=== PATIENT | male | born 1970 | race Hispanic/Latino ===

== ENCOUNTER 2020-04-02 07:23 | Inpatient (IN) | payer OTHER ==
[~2020-04-02] VITALS: Ht 167.6 cm; Wt 102.5 kg
[2020-04-02 08:26] LABS: ABG BASE EXCESS -0.2 mmol/L (-2.0-3.0); ABG OXYGEN SATURATION 93.9 % (95.0-99.0); ABG PCO2 30 mmHg (35-48)
[2020-04-02 08:40] LABS: BASOPHILS % (AUTO) 0.1 % (0.0-5.0); HEMATOCRIT 34.7 % (42-54); LYMPHOCYTES % (AUTO) 9.6 % (21.0-51.0); MEAN CORPUSCULAR HEMOGLOBIN 18.4 pg (27.0-33.0); MEAN CORPUSCULAR HGB CONC 28.5 g/dL (32.0-36.0); MEAN CORPUSCULAR VOLUME 64.6 fL (79-99); MONOCYTES % (AUTO) 5.2 % (3.0-13.0); NEUTROPHILS % (AUTO) 84.2 % (40.0-77.0); NUCLEATED RED BLOOD CELLS 0.7 % (0.0-0.19); RED BLOOD CELL COUNT(AUTO) 5.37 MIL/uL (4.50-6.20); RED CELL DISTRIBUTION WIDTH 21.1 % (11.0-15.5); WHITE BLOOD COUNT (AUTO) 13.4 K/uL (4.8-10.8)
[2020-04-02 09:00] LABS: PLATELET COUNT (AUTO) 704 K/uL (130-400)
[2020-04-02 09:23] LABS: ALANINE AMINOTRANSFERASE 30 U/L (12-78); ASPARTATE AMINOTRANSFERASE 25 U/L (10-37); BILIRUBIN,TOTAL 0.6 mg/dL (0.2-1.0); CARBON DIOXIDE 23 mmol/L (21-32); CHLORIDE 102 mmol/L (101-111); CREATINE KINASE, TOTAL 59 U/L (21-232); CREATININE 1.1 mg/dL (0.5-1.5); GLOMERULAR FILTR. RATE CALC 75 mL/min (>60); GLUCOSE,RANDOM 224 mg/dL (70-105); MYOGLOBIN 58 ng/mL (10-92); POTASSIUM 4.3 mmol/L (3.5-5.1); SODIUM SERUM 137 mmol/L (136-145); TROPONIN I < 0.04 ng/mL (0.00-0.06); UREA NITROGEN, BLOOD 19 mg/dL (7-18)
[2020-04-02 09:40] LABS: PLATELET MORPHOLOGY COMMENT MARKED INCREASE
[2020-04-02 09:41] LABS: INR 1.13 (0.85-1.15); PARTIAL THROMBOPLASTIN TIME 28.1 SEC (26.3-35.5); PROTHROMBIN TIME 12.1 SEC (9.6-11.6)
[2020-04-02] MEDS ORDERED: ALBUTEROL INHALER 90MCG/INH IH ONE (09:44)
[2020-04-02] MEDS ORDERED: DEXAMETHASONE SOD PHOSPHATE 10MG/ML 1ML VIAL ONE (09:45)
[2020-04-02] MEDS ORDERED: AZITHROMYCIN 500MG+NS 250ML 250 ML IV ONE (09:45)
[2020-04-02] MEDS ORDERED: ACETAMINOPHEN EXTRA STRENGTH 500 MG TABLET ONE (09:46)
[2020-04-02] MEDS ORDERED: CEFTRIAXONE SODIUM 1 GM ONE ×2 (09:46→21:02)
[2020-04-02] MEDS ORDERED: ONDANSETRON HCL 4 MG/2 ML VIAL IV PRN (11:30)
[2020-04-02] MEDS ORDERED: DiphenhydrAMINE HCL 50 MG/ML VIAL IV PRN (11:30)
[2020-04-02] MEDS: CEFTRIAXONE SODIUM 1 GM IVP SCH ×2 (11:30→21:41)
[2020-04-02] MEDS ORDERED: NITROGLYCERIN 0.4 MG SL TAB SL PRN (11:30)
[2020-04-02] MEDS ORDERED: DIPHENHYDRAMINE HCL 25 MG CAPSULE PO PRN (11:30)
[2020-04-02] MEDS ORDERED: ACETAMINOPHEN 325 MG TAB PO PRN ×2 (11:30)
[2020-04-02] MEDS ORDERED: HYDRALAZINE HCL 20 MG/ML VIAL IV PRN (11:30)
[2020-04-02] MEDS: INSULIN LISPRO 100 UNIT/ML 3ML SQ SCH ×2 (11:30→17:00)
[2020-04-02] MEDS ORDERED: LACTULOSE 20 GM/30 ML UDCUP PO PRN (11:30)
[2020-04-02] MEDS ORDERED: ERGOCALCIFEROL (VITAMIN D2) 50,000 UNIT CAPSULE PO ONE (11:30)
[2020-04-02] MEDS ORDERED: DEXTROSE 50%-WATER 50 ML DISP.SYRIN IV PRN (12:00)
[2020-04-02] MEDS ORDERED: GLUCAGON 1MG KIT 1 MG ML IM PRN (12:00)
[2020-04-02] MEDS ORDERED: ERGOCALCIFEROL (VITAMIN D2) 50,000 UNIT CAPSULE PO SCH (12:00)
[2020-04-02] MEDS ORDERED: POTASSIUM CHLORIDE 20 MEQ ERTAB PO PRN (12:00)
[2020-04-02] MEDS ORDERED: POTASSIUM CHLORIDE 20MEQ/100ML 100 ML IV PRN ×2 (12:00)
[2020-04-02] MEDS ORDERED: POTASSIUM CHLORIDE 10% ELIXIR 20 MEQ/15 ML UDCUP PO PRN (12:00)
[2020-04-02 12:46] LABS: HEMOGLOBIN A1C 7.5 % (4.0-6.0)
[2020-04-02] MEDS: BENZONATATE 100 MG CAPSULE PO SCH ×2 (14:00→21:42)
[2020-04-02] MEDS: METHYLPREDNISOLONE SOD SUCC 40MG/ML 1ML IVP SCH ×2 (14:00→21:41)
[2020-04-02 16:10] LABS: APPEARANCE,URINE Clear (CLEAR); BILIRUBIN,URINE Negative (NEGATIVE); COLOR,URINE Yellow (YELLOW); GLUCOSE, URINE (UA) Negative (NEGATIVE); KETONES,URINE Negative (NEGATIVE); LEUKOCYTE ESTERASE ,URINE Negative (NEGATIVE); NITRATE,URINE Negative (NEGATIVE); OCCULT BLOOD,URINE Negative (NEGATIVE); PROTEIN,URINE POS 1+ mg/dL (NEGATIVE)
[2020-04-02 16:28] LABS: RBC,URINE 0-1 /HPF (0-1); WBC,URINE 0-1 /HPF (0-1)
[2020-04-02 16:29] LABS: BACTERIA,URINE Few /HPF (None Seen); HYALINE CASTS, URINE 0-1 /LPF (0-1 /LPF); SQUAMOUS EPITHELIAL CELL,UR Rare /HPF (0-2)
[2020-04-02] MEDS: INSULIN HUMULIN R 100 UNIT/ML 3ML SQ SCH ×2 (16:30→20:15)
[2020-04-02] MEDS ORDERED: ERGOCALCIFEROL (VITAMIN D2) 50,000 UNIT CAPSULE ONE (18:10)
[2020-04-02 20:00] VITALS: BP 121/90
[2020-04-02] MEDS: ACETYLCYSTEINE 600 MG CAPSULE PO SCH (21:00)
[2020-04-02] MEDS: FAMOTIDINE 20MG TAB 20 MG TAB PO SCH (21:00)
[2020-04-02] MEDS ORDERED: ENOXAPARIN SODIUM 1 MG/KG SQ SCH (21:00)
[2020-04-02] MEDS ORDERED: DOXYCYCLINE 100MG+NS 250ML 250 ML IV ONE (21:01)
[2020-04-02] MEDS ORDERED: METHYLPREDNISOLONE SOD SUCC 40MG/ML 1ML ONE (21:01)
[2020-04-02] MEDS ORDERED: BENZONATATE 100 MG CAPSULE PO ONE (21:02)
[2020-04-02] MEDS: ENOXAPARIN SODIUM 120 MG/0.8ML SQ SCH (21:40)
[2020-04-02] MEDS: INSULIN GLARGINE 100 UNITS/ML 10 ML VIAL SQ SCH (21:41)
[2020-04-02] MEDS ORDERED: DOXYCYCLINE HYCLATE 100 MG TABLET PO ONE (21:43)
[2020-04-02] MEDS: DOXYCYCLINE HYCLATE 100 MG TABLET PO SCH (21:43)
[2020-04-03] VITALS: BP 127/80
[2020-04-03 04:00] VITALS: BP 124/69
[2020-04-03 04:51] LABS: BASOPHILS % (AUTO) 0.1 % (0.0-5.0); HEMATOCRIT 33.3 % (42-54); LYMPHOCYTES % (AUTO) 16.8 % (21.0-51.0); MEAN CORPUSCULAR HEMOGLOBIN 18.3 pg (27.0-33.0); MEAN CORPUSCULAR HGB CONC 27.9 g/dL (32.0-36.0); MEAN CORPUSCULAR VOLUME 65.4 fL (79-99); MONOCYTES % (AUTO) 7.7 % (3.0-13.0); NEUTROPHILS % (AUTO) 74.6 % (40.0-77.0); NUCLEATED RED BLOOD CELLS 1.4 % (0.0-0.19); PLATELET COUNT (AUTO) 664 K/uL (130-400); RED BLOOD CELL COUNT(AUTO) 5.09 MIL/uL (4.50-6.20); RED CELL DISTRIBUTION WIDTH 20.9 % (11.0-15.5); WHITE BLOOD COUNT (AUTO) 13.2 K/uL (4.8-10.8)
[2020-04-03] MEDS: INSULIN LISPRO 100 UNIT/ML 3ML SQ SCH (05:12)
[2020-04-03] MEDS: INSULIN HUMULIN R 100 UNIT/ML 3ML SQ SCH ×2 (05:12→21:52)
[2020-04-03 05:16] LABS: ALANINE AMINOTRANSFERASE 28 U/L (12-78); ALBUMIN 2.6 g/dL (3.5-5.0); ASPARTATE AMINOTRANSFERASE 26 U/L (10-37); BILIRUBIN,TOTAL 0.5 mg/dL (0.2-1.0); CARBON DIOXIDE 22 mmol/L (21-32); CHLORIDE 103 mmol/L (101-111); GLOMERULAR FILTR. RATE CALC 84 mL/min (>60); GLUCOSE,RANDOM 157 mg/dL (70-105); LACTATE DEHYDROGENASE 322 U/L (81-234); POTASSIUM 4.4 mmol/L (3.5-5.1); SODIUM SERUM 138 mmol/L (136-145); TOTAL PROTEIN, SERUM 7.1 g/dL (6.0-8.3); UREA NITROGEN, BLOOD 24 mg/dL (7-18)
[2020-04-03] MEDS ORDERED: ENOXAPARIN SODIUM 100 MG/1 ML SQ ONE (08:23)
[2020-04-03] MEDS ORDERED: METHYLPREDNISOLONE SOD SUCC 40MG/ML 1ML ONE ×3 (08:23→22:43)
[2020-04-03] MEDS ORDERED: DOXYCYCLINE HYCLATE 100 MG TABLET PO ONE ×2 (08:24→22:43)
[2020-04-03] MEDS ORDERED: ASCORBIC ACID 500 MG TAB ONE (08:24)
[2020-04-03] MEDS ORDERED: ZINC SULFATE 220 CAPSULE ONE (08:24)
[2020-04-03] MEDS ORDERED: BENZONATATE 100 MG CAPSULE PO ONE ×4 (08:24→22:44)
[2020-04-03] MEDS: BENZONATATE 100 MG CAPSULE PO SCH ×2 (08:46→22:55)
[2020-04-03] MEDS: DOXYCYCLINE HYCLATE 100 MG TABLET PO SCH ×2 (08:46→22:57)
[2020-04-03] MEDS: ASCORBIC ACID 500 MG TAB PO SCH (08:46)
[2020-04-03] MEDS: ZINC SULFATE 220 CAPSULE PO SCH (08:46)
[2020-04-03] MEDS: METHYLPREDNISOLONE SOD SUCC 40MG/ML 1ML IVP SCH ×2 (08:47→22:53)
[2020-04-03] MEDS: FAMOTIDINE 20MG TAB 20 MG TAB PO SCH ×2 (08:47→21:00)
[2020-04-03] MEDS: ENOXAPARIN SODIUM 120 MG/0.8ML SQ SCH ×2 (08:48→22:55)
[2020-04-03] MEDS: ACETYLCYSTEINE 600 MG CAPSULE PO SCH ×2 (09:26→22:56)
[2020-04-03] MEDS ORDERED: CEFTRIAXONE SODIUM 1 GM ONE ×2 (11:52→22:44)
[2020-04-03] MEDS ORDERED: INSULIN HUMULIN R 100 UNIT/ML 3ML ONE ×3 (12:38→22:44)
--- NOTE | 2020-04-03 18:49 | NUR ---
INITIAL: Pt remains in ED. Call placed to NICK Valenzuela(spouse). Per pts spouse they were traveling from [place] to [place] when pt became sick. She mentions that prior to admission pt was independent w ambulation and ADLs. 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 Per Mrs Valenzuela, she plans to return back to [place] and will stay in a hotel until pt is stable for discharge and plans to drive him back home [place]. CM to continue to follow and wait for Md recommendations Addendum: 04/03/20 at 1853 by ALMA COOK CM Amended: Links added.
[2020-04-03 20:00] VITALS: BP 141/72
[2020-04-03] MEDS ORDERED: DEXAMETHASONE SOD PHOSPHATE 4 MG/ML 1ML VIAL ONE (21:46)
[2020-04-03] MEDS ORDERED: SEVELAMER HCL 800 MG TABLET ONE (21:46)
[2020-04-03] MEDS ORDERED: ATORVASTATIN CALCIUM 40 MG TABLET ONE (21:46)
[2020-04-03] MEDS ORDERED: NITROGLYCERIN 1GM/1 INCH PACKET TD ONE (21:47)
[2020-04-03] MEDS ORDERED: AZITHROMYCIN 500MG+NS 250ML 0 ML IV ONE (21:47)
[2020-04-03] MEDS ORDERED: ENOXAPARIN SODIUM 40 MG/0.4 ML SYRINGE SQ ONE (21:47)
[2020-04-03] MEDS: INSULIN GLARGINE 100 UNITS/ML 10 ML VIAL SQ SCH (22:53)
[2020-04-03] MEDS: CEFTRIAXONE SODIUM 1 GM IVP SCH (22:54)
[2020-04-04 00:35] VITALS: BP 147/82
[2020-04-04 04:00] VITALS: BP 144/86
[2020-04-04] MEDS: INSULIN HUMULIN R 100 UNIT/ML 3ML SQ SCH ×4 (06:14→22:07)
[2020-04-04] MEDS: INSULIN LISPRO 100 UNIT/ML 3ML SQ SCH ×3 (06:40→17:00)
[2020-04-04] MEDS ORDERED: BENZONATATE 100 MG CAPSULE PO ONE ×3 (09:11→20:42)
[2020-04-04] MEDS ORDERED: METHYLPREDNISOLONE SOD SUCC 40MG/ML 1ML ONE ×2 (09:13→12:15)
[2020-04-04] MEDS ORDERED: DOXYCYCLINE HYCLATE 100 MG TABLET PO ONE ×2 (09:13→22:15)
[2020-04-04] MEDS ORDERED: ZINC SULFATE 220 CAPSULE ONE (09:14)
[2020-04-04] MEDS ORDERED: ASCORBIC ACID 500 MG TAB ONE (09:14)
[2020-04-04] MEDS: DOXYCYCLINE HYCLATE 100 MG TABLET PO SCH ×2 (09:15→22:23)
[2020-04-04] MEDS: ZINC SULFATE 220 CAPSULE PO SCH (09:16)
[2020-04-04] MEDS: BENZONATATE 100 MG CAPSULE PO SCH ×3 (09:16→22:24)
[2020-04-04] MEDS: METHYLPREDNISOLONE SOD SUCC 40MG/ML 1ML IVP SCH ×3 (09:16→22:23)
[2020-04-04] MEDS: ASCORBIC ACID 500 MG TAB PO SCH (09:16)
[2020-04-04] MEDS: ENOXAPARIN SODIUM 120 MG/0.8ML SQ SCH ×2 (09:17→22:24)
[2020-04-04] MEDS: ACETYLCYSTEINE 600 MG CAPSULE PO SCH ×2 (09:17→22:23)
[2020-04-04] MEDS: FAMOTIDINE 20MG TAB 20 MG TAB PO SCH ×2 (09:59→21:00)
[2020-04-04] MEDS ORDERED: CEFTRIAXONE SODIUM 1 GM ONE ×2 (12:16→20:42)
[2020-04-04] MEDS ORDERED: INSULIN HUMULIN R 100 UNIT/ML 3ML ONE ×2 (12:19→22:00)
[2020-04-04] MEDS: CEFTRIAXONE SODIUM 1 GM IVP SCH ×2 (12:25→22:24)
[2020-04-04 13:14] LABS: BASOPHILS % (AUTO) 0.1 % (0.0-5.0); HEMATOCRIT 32.1 % (42-54); LYMPHOCYTES % (AUTO) 9.4 % (21.0-51.0); MEAN CORPUSCULAR HEMOGLOBIN 18.3 pg (27.0-33.0); MEAN CORPUSCULAR VOLUME 65.2 fL (79-99); MONOCYTES % (AUTO) 4.1 % (3.0-13.0); NEUTROPHILS % (AUTO) 85.7 % (40.0-77.0); NUCLEATED RED BLOOD CELLS 0.6 % (0.0-0.19); PLATELET COUNT (AUTO) 644 K/uL (130-400); RED BLOOD CELL COUNT(AUTO) 4.92 MIL/uL (4.50-6.20); RED CELL DISTRIBUTION WIDTH 20.7 % (11.0-15.5); WHITE BLOOD COUNT (AUTO) 11.7 K/uL (4.8-10.8)
[2020-04-04 13:23] LABS: ALANINE AMINOTRANSFERASE 27 U/L (12-78); ALBUMIN 2.6 g/dL (3.5-5.0); ASPARTATE AMINOTRANSFERASE 18 U/L (10-37); BILIRUBIN,TOTAL 0.3 mg/dL (0.2-1.0); CARBON DIOXIDE 30 mmol/L (21-32); CHLORIDE 101 mmol/L (101-111); CREATININE 0.9 mg/dL (0.5-1.5); GLOMERULAR FILTR. RATE CALC 95 mL/min (>60); GLUCOSE,RANDOM 207 mg/dL (70-105); LACTATE DEHYDROGENASE 205 U/L (81-234); POTASSIUM 5.2 mmol/L (3.5-5.1); SODIUM SERUM 137 mmol/L (136-145); TOTAL PROTEIN, SERUM 6.9 g/dL (6.0-8.3); UREA NITROGEN, BLOOD 24 mg/dL (7-18)
--- NOTE | 2020-04-04 18:07 | NUR ---
Pt alert, showed no signs and symptoms of distress, insulin sliding scale and scheduled insulin was given and signed off on ED medication sheet, medication sheet was placed in each pt folder, pt stated no pain, will continue to monitor
[2020-04-04] MEDS ORDERED: METHYLPREDNISOLONE SOD SUCC 125MG/2ML VIAL ONE (20:38)
[2020-04-04] MEDS: INSULIN GLARGINE 100 UNITS/ML 10 ML VIAL SQ SCH (22:10)
[2020-04-04] MEDS ORDERED: ENOXAPARIN SODIUM 100 MG/1 ML SQ ONE (22:17)
[2020-04-05 00:43] VITALS: BP 144/83
[2020-04-05 04:16] VITALS: BP 151/89
[2020-04-05 05:26] LABS: BASOPHILS % (AUTO) 0.1 % (0.0-5.0); HEMATOCRIT 32.7 % (42-54); MEAN CORPUSCULAR HEMOGLOBIN 18.5 pg (27.0-33.0); MEAN CORPUSCULAR HGB CONC 28.1 g/dL (32.0-36.0); MEAN CORPUSCULAR VOLUME 65.7 fL (79-99); MONOCYTES % (AUTO) 5.6 % (3.0-13.0); NEUTROPHILS % (AUTO) 76.9 % (40.0-77.0); PLATELET COUNT (AUTO) 652 K/uL (130-400); RED BLOOD CELL COUNT(AUTO) 4.98 MIL/uL (4.50-6.20); RED CELL DISTRIBUTION WIDTH 20.5 % (11.0-15.5); WHITE BLOOD COUNT (AUTO) 9.4 K/uL (4.8-10.8)
[2020-04-05 05:43] LABS: ALANINE AMINOTRANSFERASE 31 U/L (12-78); ALBUMIN 2.7 g/dL (3.5-5.0); ASPARTATE AMINOTRANSFERASE 16 U/L (10-37); BILIRUBIN,TOTAL 0.5 mg/dL (0.2-1.0); CARBON DIOXIDE 27 mmol/L (21-32); CHLORIDE 100 mmol/L (101-111); CREATININE 0.8 mg/dL (0.5-1.5); GLOMERULAR FILTR. RATE CALC 108 mL/min (>60); GLUCOSE,RANDOM 135 mg/dL (70-105); LACTATE DEHYDROGENASE 207 U/L (81-234); POTASSIUM 4.3 mmol/L (3.5-5.1); SODIUM SERUM 136 mmol/L (136-145); UREA NITROGEN, BLOOD 20 mg/dL (7-18)
[2020-04-05] MEDS: INSULIN HUMULIN R 100 UNIT/ML 3ML SQ SCH ×4 (06:44→21:00)
[2020-04-05] MEDS: INSULIN LISPRO 100 UNIT/ML 3ML SQ SCH ×3 (07:08→17:00)
[2020-04-05 08:55] LABS: BASOPHILS % (AUTO) 0.1 % (0.0-5.0); LYMPHOCYTES % (AUTO) 16.1 % (21.0-51.0); MEAN CORPUSCULAR HEMOGLOBIN 18.3 pg (27.0-33.0); MEAN CORPUSCULAR HGB CONC 28.1 g/dL (32.0-36.0); MONOCYTES % (AUTO) 2.8 % (3.0-13.0); NEUTROPHILS % (AUTO) 80.5 % (40.0-77.0); NUCLEATED RED BLOOD CELLS 0.6 % (0.0-0.19); PLATELET COUNT (AUTO) 637 K/uL (130-400); RED BLOOD CELL COUNT(AUTO) 4.92 MIL/uL (4.50-6.20); RED CELL DISTRIBUTION WIDTH 20.8 % (11.0-15.5); WHITE BLOOD COUNT (AUTO) 8.7 K/uL (4.8-10.8)
[2020-04-05] MEDS: FAMOTIDINE 20MG TAB 20 MG TAB PO SCH ×2 (09:00→21:00)
[2020-04-05] MEDS: DOXYCYCLINE HYCLATE 100 MG TABLET PO SCH ×2 (09:00→21:00)
[2020-04-05] MEDS: ASCORBIC ACID 500 MG TAB PO SCH (09:00)
[2020-04-05] MEDS: ACETYLCYSTEINE 600 MG CAPSULE PO SCH ×2 (09:00→21:00)
[2020-04-05] MEDS: ENOXAPARIN SODIUM 120 MG/0.8ML SQ SCH ×2 (09:00→21:00)
[2020-04-05] MEDS: BENZONATATE 100 MG CAPSULE PO SCH ×3 (09:00→21:00)
[2020-04-05] MEDS: METHYLPREDNISOLONE SOD SUCC 40MG/ML 1ML IVP SCH ×3 (09:00→21:00)
[2020-04-05] MEDS: ZINC SULFATE 220 CAPSULE PO SCH (09:00)
[2020-04-05] MEDS ORDERED: ASCORBIC ACID 500 MG TAB ONE (09:49)
[2020-04-05] MEDS ORDERED: DOXYCYCLINE HYCLATE 100 MG TABLET PO ONE ×2 (09:49→20:56)
[2020-04-05] MEDS ORDERED: ENOXAPARIN SODIUM 100 MG/1 ML SQ ONE (09:49)
[2020-04-05] MEDS ORDERED: BENZONATATE 100 MG CAPSULE PO ONE ×3 (09:50→20:57)
[2020-04-05] MEDS ORDERED: METHYLPREDNISOLONE SOD SUCC 125MG/2ML VIAL ONE ×2 (09:50→20:59)
[2020-04-05] MEDS ORDERED: ENOXAPARIN SODIUM 30 MG/0.3 ML SQ ONE (09:50)
[2020-04-05] MEDS ORDERED: ZINC SULFATE 220 CAPSULE ONE (09:50)
[2020-04-05] MEDS ORDERED: CEFTRIAXONE SODIUM 1 GM ONE (09:51)
[2020-04-05] MEDS ORDERED: FAMOTIDINE/PF 20 MG/2 ML VIAL IV ONE ×2 (09:51→20:57)
[2020-04-05] MEDS ORDERED: SODIUM CHLORIDE 0.9% 100 ML IV ONE (09:53)
[2020-04-05] MEDS ORDERED: ACETYLCYSTEINE 600 MG CAPSULE ONE (09:57)
[2020-04-05] MEDS: CEFTRIAXONE SODIUM 1 GM IVP SCH ×2 (11:30→23:30)
[2020-04-05] MEDS ORDERED: INSULIN HUMULIN R 100 UNIT/ML 3ML ONE ×3 (12:13→20:59)
[2020-04-05] MEDS ORDERED: METHYLPREDNISOLONE SOD SUCC 40MG/ML 1ML ONE (13:24)
--- NOTE | 2020-04-05 14:27 | NUR ---
phone call family updated
[2020-04-05] MEDS: INSULIN GLARGINE 100 UNITS/ML 10 ML VIAL SQ SCH (21:00)
[2020-04-06] MEDS ORDERED: CEFTRIAXONE SODIUM 1 GM ONE ×2 (01:35→08:37)
[2020-04-06 05:47] LABS: HEMATOCRIT 31.8 % (42-54); LYMPHOCYTES % (AUTO) 15.6 % (21.0-51.0); MEAN CORPUSCULAR HEMOGLOBIN 18.1 pg (27.0-33.0); MEAN CORPUSCULAR VOLUME 64.8 fL (79-99); MONOCYTES % (AUTO) 5.7 % (3.0-13.0); NEUTROPHILS % (AUTO) 78.4 % (40.0-77.0); NUCLEATED RED BLOOD CELLS 0.5 % (0.0-0.19); PLATELET COUNT (AUTO) 622 K/uL (130-400); RED BLOOD CELL COUNT(AUTO) 4.91 MIL/uL (4.50-6.20); RED CELL DISTRIBUTION WIDTH 20.4 % (11.0-15.5); WHITE BLOOD COUNT (AUTO) 8.7 K/uL (4.8-10.8)
[2020-04-06 06:20] LABS: ALBUMIN 2.6 g/dL (3.5-5.0); BILIRUBIN,TOTAL 0.5 mg/dL (0.2-1.0); CREATININE 0.8 mg/dL (0.5-1.5); CRP QUANTITATIVE 7.8 mg/L (0.00-9.0); POTASSIUM 4.6 mmol/L (3.5-5.1); TOTAL PROTEIN, SERUM 6.3 g/dL (6.0-8.3)
[2020-04-06] MEDS: INSULIN HUMULIN R 100 UNIT/ML 3ML SQ SCH ×4 (07:30→21:56)
[2020-04-06] MEDS: INSULIN LISPRO 100 UNIT/ML 3ML SQ SCH ×3 (07:30→16:48)
[2020-04-06] MEDS ORDERED: ASCORBIC ACID 500 MG TAB ONE (08:35)
[2020-04-06] MEDS ORDERED: METHYLPREDNISOLONE SOD SUCC 40MG/ML 1ML ONE (08:35)
[2020-04-06] MEDS ORDERED: DOXYCYCLINE HYCLATE 100 MG TABLET PO ONE (08:35)
[2020-04-06] MEDS ORDERED: ACETYLCYSTEINE 600 MG CAPSULE ONE (08:36)
[2020-04-06] MEDS ORDERED: BENZONATATE 100 MG CAPSULE PO ONE (08:36)
[2020-04-06] MEDS ORDERED: ZINC SULFATE 220 CAPSULE ONE (08:36)
[2020-04-06] MEDS: DOXYCYCLINE HYCLATE 100 MG TABLET PO SCH ×2 (09:00→21:57)
[2020-04-06] MEDS: METHYLPREDNISOLONE SOD SUCC 40MG/ML 1ML IVP SCH ×3 (09:00→21:57)
[2020-04-06] MEDS: ZINC SULFATE 220 CAPSULE PO SCH (09:00)
[2020-04-06] MEDS: ASCORBIC ACID 500 MG TAB PO SCH (09:00)
[2020-04-06] MEDS: BENZONATATE 100 MG CAPSULE PO SCH ×3 (09:00→21:57)
[2020-04-06] MEDS: FAMOTIDINE 20MG TAB 20 MG TAB PO SCH ×3 (09:00→21:57)
[2020-04-06] MEDS: ENOXAPARIN SODIUM 120 MG/0.8ML SQ SCH ×2 (09:00→21:57)
[2020-04-06] MEDS: ACETYLCYSTEINE 600 MG CAPSULE PO SCH ×2 (09:00→21:57)
[2020-04-06 09:30] VITALS: BP 146/87
[2020-04-06] MEDS ORDERED: CYANOCOBALAMIN (VITAMIN B-12) 1,000 MCG TABLET ONE (10:00)
[2020-04-06] MEDS ORDERED: SEVELAMER HCL 800 MG TABLET ONE (10:00)
--- NOTE | 2020-04-06 10:00 | NUR ---
RECEIVED FROM ER. PT IS MED TELE, ICU ROOM, DUE TO OVERFLOW. ALERT AWAKE ORIENTED, SPO2 88% ON 2L NASAL CANNULA IN A SITTING UP POSITION.
--- NOTE | 2020-04-06 10:30 | NUR ---
PRONE POSITION SPO2 99%
[2020-04-06 10:55] VITALS: BP 142/85
[2020-04-06] MEDS: GUAIFENESIN-DM 200/20 MG 10 ML PO PRN ×2 (10:56→16:49)
[2020-04-06] MEDS: CEFTRIAXONE SODIUM 1 GM IVP SCH ×2 (11:06→21:57)
[2020-04-06] MEDS ORDERED: PHARMACY COMMUNICATION MISC SCH (11:15)
--- NOTE | 2020-04-06 12:00 | NUR ---
PLACED EXTENSION TUBING AND HUMIDIFIER TO NASAL CANNULA AND WAS ABLE TO SHOWER. PT STATES HE FEELS MUCH BETTER AND WAS ABLE TO COUGH AND DEEP BREATHE IN THE SHOWER.
[2020-04-06 12:55] VITALS: BP 141/71
[2020-04-06] MEDS: MAG HYDROX/AL HYDROX/SIMETH ES 30 ML SUSP UDCUP PO PRN (15:00)
--- NOTE | 2020-04-06 15:03 | NUR ---
PHONE CALL UPDATED PATIENT RADHA ON PATIENT STATUS AND GAVE OPPORTUNITY TO ASK QUESTIONS.
[2020-04-06 16:55] VITALS: BP 138/70
--- NOTE | 2020-04-06 17:18 | NUR ---
TRANSFERRED TO [facility] 222. VS STABLE. GAVE PT FAHEEM. PT IS CONTINUING PRONE POSITION, RECOMMENDED TO HIM. SBAR REPORT
--- NOTE | 2020-04-06 17:30 | NUR ---
Pt transferred from ICU. AA&O sitting at the side of the bed. Tele connected to back. Bed low. Call light within reach. No s/s of distress noted at this time.
[2020-04-06 20:00] VITALS: BP 127/83
[2020-04-06] MEDS: INSULIN GLARGINE 100 UNITS/ML 10 ML VIAL SQ SCH (21:56)
[2020-04-07] VITALS (7 sets, daily range): BP systolic 121–159; BP diastolic 70–99
[2020-04-07] MEDS: INSULIN HUMULIN R 100 UNIT/ML 3ML SQ SCH ×4 (06:00→21:46)
[2020-04-07 07:17] LABS: BASOPHILS % (AUTO) 0.1 % (0.0-5.0); LYMPHOCYTES % (AUTO) 15.3 % (21.0-51.0); MEAN CORPUSCULAR HEMOGLOBIN 18.7 pg (27.0-33.0); MEAN CORPUSCULAR HGB CONC 28.2 g/dL (32.0-36.0); MEAN CORPUSCULAR VOLUME 66.3 fL (79-99); MONOCYTES % (AUTO) 6.4 % (3.0-13.0); NEUTROPHILS % (AUTO) 77.7 % (40.0-77.0); NUCLEATED RED BLOOD CELLS 0.3 % (0.0-0.19); PLATELET COUNT (AUTO) 622 K/uL (130-400); RED BLOOD CELL COUNT(AUTO) 4.98 MIL/uL (4.50-6.20); RED CELL DISTRIBUTION WIDTH 20.5 % (11.0-15.5); WHITE BLOOD COUNT (AUTO) 10.9 K/uL (4.8-10.8)
[2020-04-07 07:23] LABS: CREATININE 0.9 mg/dL (0.5-1.5); CRP QUANTITATIVE 5.2 mg/L (0.00-9.0)
[2020-04-07] MEDS: DOXYCYCLINE HYCLATE 100 MG TABLET PO SCH ×2 (08:31→22:09)
[2020-04-07] MEDS: METHYLPREDNISOLONE SOD SUCC 40MG/ML 1ML IVP SCH ×3 (08:31→22:09)
[2020-04-07] MEDS: ACETYLCYSTEINE 600 MG CAPSULE PO SCH ×2 (08:31→22:09)
[2020-04-07] MEDS: CEFTRIAXONE SODIUM 1 GM IVP SCH ×2 (08:31→21:44)
[2020-04-07] MEDS: ASCORBIC ACID 500 MG TAB PO SCH (08:31)
[2020-04-07] MEDS: BENZONATATE 100 MG CAPSULE PO SCH ×3 (08:31→22:09)
[2020-04-07] MEDS: ZINC SULFATE 220 CAPSULE PO SCH (08:31)
[2020-04-07] MEDS: FAMOTIDINE 20MG TAB 20 MG TAB PO SCH ×2 (08:31→22:09)
[2020-04-07] MEDS: ENOXAPARIN SODIUM 120 MG/0.8ML SQ SCH ×2 (08:32→22:09)
[2020-04-07] MEDS: INSULIN LISPRO 100 UNIT/ML 3ML SQ SCH ×3 (08:33→16:26)
[2020-04-07] MEDS: INSULIN GLARGINE 100 UNITS/ML 10 ML VIAL SQ SCH (21:47)
[2020-04-08 03:21] VITALS: BP 121/74
[2020-04-08] MEDS: INSULIN HUMULIN R 100 UNIT/ML 3ML SQ SCH ×3 (06:23→17:08)
[2020-04-08] MEDS: INSULIN LISPRO 100 UNIT/ML 3ML SQ SCH ×4 (06:44→22:07)
[2020-04-08 08:00] VITALS: BP 142/73
[2020-04-08] MEDS: FAMOTIDINE 20MG TAB 20 MG TAB PO SCH ×2 (09:46→21:56)
[2020-04-08] MEDS: BENZONATATE 100 MG CAPSULE PO SCH ×3 (09:46→21:56)
[2020-04-08] MEDS: ACETYLCYSTEINE 600 MG CAPSULE PO SCH ×2 (09:46→21:56)
[2020-04-08] MEDS: CEFTRIAXONE SODIUM 1 GM IVP SCH ×2 (09:46→21:56)
[2020-04-08] MEDS: ASCORBIC ACID 500 MG TAB PO SCH (09:46)
[2020-04-08] MEDS: ZINC SULFATE 220 CAPSULE PO SCH (09:46)
[2020-04-08] MEDS: MAG HYDROX/AL HYDROX/SIMETH ES 30 ML SUSP UDCUP PO PRN (09:46)
[2020-04-08] MEDS: DOXYCYCLINE HYCLATE 100 MG TABLET PO SCH ×2 (09:46→21:56)
[2020-04-08] MEDS: METHYLPREDNISOLONE SOD SUCC 40MG/ML 1ML IVP SCH ×3 (09:48→21:56)
[2020-04-08] MEDS: ENOXAPARIN SODIUM 120 MG/0.8ML SQ SCH ×2 (09:50→21:56)
[2020-04-08 11:00] VITALS: BP 120/84
[2020-04-08 15:00] VITALS: BP 125/78
[2020-04-08 19:01] VITALS: BP 112/66
[2020-04-08] MEDS: INSULIN GLARGINE 100 UNITS/ML 10 ML VIAL SQ SCH (22:08)
[2020-04-08 23:00] VITALS: BP 139/77
[2020-04-09 03:35] VITALS: BP 127/71
[2020-04-09 05:25] LABS: HEMATOCRIT 32.8 % (42-54); LYMPHOCYTES % (AUTO) 15.6 % (21.0-51.0); MEAN CORPUSCULAR HEMOGLOBIN 18.7 pg (27.0-33.0); MEAN CORPUSCULAR HGB CONC 28.7 g/dL (32.0-36.0); MEAN CORPUSCULAR VOLUME 65.3 fL (79-99); NEUTROPHILS % (AUTO) 76.9 % (40.0-77.0); NUCLEATED RED BLOOD CELLS 0.5 % (0.0-0.19); PLATELET COUNT (AUTO) 522 K/uL (130-400); RED BLOOD CELL COUNT(AUTO) 5.02 MIL/uL (4.50-6.20); RED CELL DISTRIBUTION WIDTH 20.1 % (11.0-15.5); WHITE BLOOD COUNT (AUTO) 8.5 K/uL (4.8-10.8)
[2020-04-09 05:45] LABS: B-TYPE NATRIURETIC PEPTIDE 8 pg/mL (0-100)
[2020-04-09 05:47] LABS: CREATININE 0.9 mg/dL (0.5-1.5); POTASSIUM 4.7 mmol/L (3.5-5.1)
[2020-04-09] MEDS: INSULIN LISPRO 100 UNIT/ML 3ML SQ SCH ×5 (06:36→21:06)
[2020-04-09 08:00] VITALS: BP 144/79
[2020-04-09] MEDS: BENZONATATE 100 MG CAPSULE PO SCH ×4 (09:00→20:22)
[2020-04-09] MEDS: FAMOTIDINE 20MG TAB 20 MG TAB PO SCH ×2 (09:21→20:22)
[2020-04-09] MEDS: METHYLPREDNISOLONE SOD SUCC 40MG/ML 1ML IVP SCH (09:22)
[2020-04-09] MEDS: ENOXAPARIN SODIUM 120 MG/0.8ML SQ SCH ×2 (09:22→20:23)
[2020-04-09] MEDS: ASCORBIC ACID 500 MG TAB PO SCH (09:22)
[2020-04-09] MEDS: ACETYLCYSTEINE 600 MG CAPSULE PO SCH ×2 (09:22→20:22)
[2020-04-09] MEDS: ZINC SULFATE 220 CAPSULE PO SCH (09:22)
[2020-04-09] MEDS: DOXYCYCLINE HYCLATE 100 MG TABLET PO SCH (09:22)
[2020-04-09] MEDS: CEFTRIAXONE SODIUM 1 GM IVP SCH (09:22)
[2020-04-09 11:00] VITALS: BP 124/89
--- NOTE | 2020-04-09 12:20 | NUR ---
Called Dr. Sue for discharge med rec. No answer will attempt again.
[2020-04-09 16:00] VITALS: BP 125/81
[2020-04-09] MEDS: METFORMIN HCL 500 MG TAB.SR.24H PO SCH (16:36)
[2020-04-09 20:42] VITALS: BP 121/70
[2020-04-09 23:53] VITALS: BP 143/76
[2020-04-10 03:44] VITALS: BP 119/84
[2020-04-10 07:03] LABS: BASOPHILS % (AUTO) 0.1 % (0.0-5.0); HEMATOCRIT 33.2 % (42-54); LYMPHOCYTES % (AUTO) 43.1 % (21.0-51.0); MEAN CORPUSCULAR HEMOGLOBIN 18.4 pg (27.0-33.0); MEAN CORPUSCULAR HGB CONC 27.4 g/dL (32.0-36.0); MEAN CORPUSCULAR VOLUME 67.1 fL (79-99); MONOCYTES % (AUTO) 11.3 % (3.0-13.0); NEUTROPHILS % (AUTO) 44.1 % (40.0-77.0); NUCLEATED RED BLOOD CELLS 0.3 % (0.0-0.19); PLATELET COUNT (AUTO) 519 K/uL (130-400); RED BLOOD CELL COUNT(AUTO) 4.95 MIL/uL (4.50-6.20); RED CELL DISTRIBUTION WIDTH 20.4 % (11.0-15.5); WHITE BLOOD COUNT (AUTO) 8.9 K/uL (4.8-10.8)
[2020-04-10 07:24] LABS: CREATININE 0.9 mg/dL (0.5-1.5); POTASSIUM 4.1 mmol/L (3.5-5.1)
[2020-04-10] MEDS: INSULIN LISPRO 100 UNIT/ML 3ML SQ SCH ×4 (07:30→21:55)
[2020-04-10 08:00] VITALS: BP 127/85
[2020-04-10] MEDS: ENOXAPARIN SODIUM 120 MG/0.8ML SQ SCH ×2 (08:29→21:55)
[2020-04-10] MEDS: METFORMIN HCL 500 MG TAB.SR.24H PO SCH ×2 (08:30→16:15)
[2020-04-10] MEDS: FAMOTIDINE 20MG TAB 20 MG TAB PO SCH ×2 (08:30→21:54)
[2020-04-10] MEDS: ZINC SULFATE 220 CAPSULE PO SCH (08:30)
[2020-04-10] MEDS: BENZONATATE 100 MG CAPSULE PO SCH ×3 (08:30→21:54)
[2020-04-10] MEDS: ASCORBIC ACID 500 MG TAB PO SCH (08:30)
[2020-04-10] MEDS: ACETYLCYSTEINE 600 MG CAPSULE PO SCH ×2 (08:30→21:54)
[2020-04-10] MEDS: DEXAMETHASONE 4 MG TAB PO SCH (08:30)
--- NOTE | 2020-04-10 10:28 | NUR ---
Removed NC from patient prior to breakfast oxygen sat 95% on 2lpm. Recheck oxygen at 1029 88-90% at rest. Placed on 1lpm NC.Will continue to monitor. Requested IS from respiratory.
[2020-04-10 11:00] VITALS: BP 118/79
[2020-04-10 16:00] VITALS: BP 126/84
[2020-04-10 20:44] VITALS: BP 126/121
[2020-04-11 00:37] VITALS: BP 115/74
[2020-04-11 04:18] VITALS: BP 142/73
[2020-04-11] MEDS: INSULIN LISPRO 100 UNIT/ML 3ML SQ SCH ×3 (05:54→16:58)
[2020-04-11 07:05] LABS: EOSINOPHILS % (AUTO) 1.5 % (0.0-8.0); HEMATOCRIT 33.8 % (42-54); LYMPHOCYTES % (AUTO) 38.7 % (21.0-51.0); MEAN CORPUSCULAR HEMOGLOBIN 18.6 pg (27.0-33.0); MEAN CORPUSCULAR HGB CONC 27.5 g/dL (32.0-36.0); MEAN CORPUSCULAR VOLUME 67.6 fL (79-99); MONOCYTES % (AUTO) 9.9 % (3.0-13.0); NEUTROPHILS % (AUTO) 49.6 % (40.0-77.0); PLATELET COUNT (AUTO) 489 K/uL (130-400); RED CELL DISTRIBUTION WIDTH 20.5 % (11.0-15.5); WHITE BLOOD COUNT (AUTO) 9.4 K/uL (4.8-10.8)
[2020-04-11 07:52] LABS: CARBON DIOXIDE 30 mmol/L (21-32); CHLORIDE 104 mmol/L (101-111); CREATININE 0.9 mg/dL (0.5-1.5); GLOMERULAR FILTR. RATE CALC 95 mL/min (>60); GLUCOSE,RANDOM 87 mg/dL (70-105); LACTATE DEHYDROGENASE 184 U/L (81-234); POTASSIUM 4.5 mmol/L (3.5-5.1); SODIUM SERUM 137 mmol/L (136-145); UREA NITROGEN, BLOOD 20 mg/dL (7-18)
[2020-04-11 08:00] VITALS: BP 105/72
[2020-04-11 08:10] LABS: B-TYPE NATRIURETIC PEPTIDE 9 pg/mL (0-100)
[2020-04-11] MEDS: ZINC SULFATE 220 CAPSULE PO SCH (08:44)
[2020-04-11] MEDS: DEXAMETHASONE 4 MG TAB PO SCH (08:44)
[2020-04-11] MEDS: BENZONATATE 100 MG CAPSULE PO SCH ×2 (08:45→14:00)
[2020-04-11] MEDS: ASCORBIC ACID 500 MG TAB PO SCH (08:45)
[2020-04-11] MEDS: ENOXAPARIN SODIUM 120 MG/0.8ML SQ SCH (08:45)
[2020-04-11] MEDS: FAMOTIDINE 20MG TAB 20 MG TAB PO SCH (08:45)
[2020-04-11] MEDS: METFORMIN HCL 500 MG TAB.SR.24H PO SCH ×2 (08:45→16:33)
[2020-04-11] MEDS: ACETYLCYSTEINE 600 MG CAPSULE PO SCH (08:45)
[2020-04-11 09:56] LABS: CRP QUANTITATIVE < 2.00 mg/L (0.00-9.0)
[2020-04-11 11:00] VITALS: BP 123/86
[2020-04-11 16:00] VITALS: BP 124/76
[2020-04-11] MEDS ORDERED: APIX2.5T PO (16:58)
[2020-04-11] MEDS ORDERED: DEXA6TAB PO (16:58)
[2020-04-11] MEDS ORDERED: METF500T3 PO (16:58)
--- NOTE | 2020-04-11 17:54 | NUR ---
Provided discharge instructions to pt. Educated on discharge medications. Informed to citrus picker medications from [facility] here in [place], and to start taking all the medications on 04/12/2020. Pt verbalized understanding. Educated to continue to social distance for 21 days, follow up with pcp in 1 week via telemedicine, wear mask when around other people, and good hand hygiene.IV and tele removed. Provided pt with CDC recommendations for Covid-19. Pt will be discharged when transportation arrives.
[2020-04-12] MEDS ORDERED: ENOXAPARIN SODIUM 60 MG/0.6 ML SQ SCH (09:00)
== END 2020-04-11 19:00 | disposition home or self-care (01) | DRG 177 ==
LOC: EDH 07:23 → EDHIP 11:30 → 2CH 04-06 09:58 → 2DH 04-06 17:40
PROVIDERS: ADMIT Family Medicine; ATTEND Family Medicine
DX: U07.1 COVID-19 (principal); J12.89 Other viral pneumonia; J96.01 Acute respiratory failure with hypoxia; I10 Essential (primary) hypertension; D72.810 Lymphocytopenia; E11.9 Type 2 diabetes mellitus without complications; Z79.01 Long term (current) use of anticoagulants; Z79.4 Long term (current) use of insulin; Z79.82 Long term (current) use of aspirin
CPT/HCPCS: 36415; 36600; 71045; 80048; 80053; 81001; 82550; 82728; 82803; 82948; 83036; 83605; 83615; 83874; 83880; 84145; 84484; 85025; 85378; 85610; 85730; 86140; 87040; 87088; 87804; 93005; 99291; G0378; J0456; J0696; J1100; J1650; J1815; J2920; J2930; J3490; J8540; Q0163; U0003